=== PATIENT | male | born 1980 | race Caucasian/White ===

== ENCOUNTER 2022-12-16 17:51 | Inpatient (IN) | payer MEDICAID, SELFPAY ==
[2022-12-16 17:52] VITALS: BP 163/116; PULSE 103; RESP 16; TEMP 36.4; O2SAT 95; BMI 16.5
--- NOTE | 2022-12-16 18:26 | EDS_ITS ---
HPI History of Present Illness Chief Complaint: Substance Abuse Informant: patient Onset/Context/Timing Onset: Today Context: Gradual Onset Timing: Continuous Quality: Tremors Location: Generalized Worsened by: Nothing Relieved by: Nothing Associated Symptoms Associated Symptoms: Positive for diarrhea*; Negative for vomiting*, fever*, rash*, seizure, tremor, palpatations, change in mental status, suicidal ideation or homicidal ideation Narrative Narrative: Patient presents requesting detox from alcohol, cocaine, and marijuana. Patient states he drinks the equivalent of a sixpack of beer per day. Patient states hi s last drink was approximately 3 PM today (4 hours prior to arrival). Patient has been through detox in the past. Patient states he was at a different facility and it was 3 to 4 years ago. 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 Patient states he has been having some diarrhea and some blood in his stools. Patient admits to some tremors but denies any seizures. Patient denies any suicidal or homicidal ideations. [facility] Medical History (Updated 12/16/22 @ 21:[address] Rolo Roque DO) Chronic pancreatitis due to acute alcohol intoxication Myocardial infarction Home Medications NK 12/16/22 [History Last Taken Unknown] Allergy/AdvReac Type Severity Reaction Status Date / Time No Known Allergies Allergy Verified 12/16/22 17:54 Surgical History History of back surgery Social History (Updated 12/16/22 @ 19:[address] Rolo Roque DO) Smoking Status: Current every day smoker tobacco type: cigarettes alcohol intake: current alcohol intake frequency: 3 or more drinks per day Alcohol type: beer substance use type: marijuana and crack/cocaine ROS ROS ED Constitutional Constitutional ED: Denies chills or fever(s) Eyes Eyes: Denies blurry vision or change in vision ENT ENT ED: Denies rhinorrhea or sore throat Cardiovascular Cardiovascular: Denies chest pain or palpitations Respiratory/Chest Respiratory/Chest: Denies cough or dyspnea Gastrointestinal Gastrointestinal: Reports diarrhea; Denies nausea or vomiting Genitourinary Genitourinary ED: Denies dysuria or hematuria Musculoskeletal Musculoskeletal: Reports back pain; Denies neck pain Integumentary Denies abscess or rash Neurologic Neurologic: Denies headache(s) or weakness Allergic/Immunologic Allergic/Immunologic ED: Denies mouth swelling or urticaria EXAM Physical Exam Const Vital Signs: 12/16/22 17:52 12/16/22 19:44 Temperature 97.6 F L 98.0 F Temperature Source Temporal Temporal Pulse Rate 103 H 82 Respiratory Rate 16 18 Blood Pressure 163/116 H 127/90 H Blood Pressure Mean 131 102 Pulse Ox 95 98 Oxygen Delivery Method Room Air Room Air Positive well nourished and well developed General Appearance ED: well developed and NAD HEENT Reports moist mucous membranes Neck supple and no JVD Resp normal respiratory effort and clear to auscultation bilaterally Cardio regular rate and regular rhythm GI normal to inspection, nondistended, normoactive bowel sounds GI Narrative: Rectal exam showed good sphincter tone. There were external hemorrhoids noted. There is red blood noted on the rectal exam. Palpation: soft and tender LUQ; Negative for guarding Rectal Exam: heme positive stool Extremity normal to inspection General Extremety ED: Negative for edema or tenderness General Extremity: Negative for edema Neuro oriented x3, CN's II-XII intact bilaterally and no sensory deficits noted Sensorium / Orientation: alert Speech: speech normal Motor Exam: strength 5/5 throughout Psych mental status grossly normal Skin no rashes or lesions noted MDM MDM MDM Narrative Medical decision making narrative: Differential diagnosis includes alcohol withdrawal, alcohol dependence, substance abuse, pancreatitis, and coagulopathy. CBC will be obtained to assess for anemia and leukocytosis. Comprehensive metabolic profile will be obtained to assess for hepatic function, renal function, and electrolyte abnormality. PT was INR and PTT will be obtained to assess for coagulopathy. Serum alcohol level will be obtained to assess for alcohol intoxication. Urine drug screen will be obtained to assess for substance abuse. Lab Data Attestation: I reviewed the patient's lab results. Lab results narrative: CBC was reviewed. Hemoglobin and hematocrit are stable. There is no leukocytosis. Platelets are normal. PT with INR and PTT were reviewed and were within normal limits. Comprehensive metabolic profile was reviewed. Glucose was slightly elevated at 135 but the remainder is within normal limits. Serum alcohol level was reviewed and was elevated at 338. Urine tox screen was positive for cocaine and cannabinoids. Labs: Laboratory Results - last 24 hr 12/16/22 12/16/22 18:20 18:25 WBC 8.6 RBC 5.01 Hgb 14.9 Hct 45.9 MCV 91.6 MCH 29.7 MCHC 32.5 RDW Std Deviation 46.7 H RDW Coeff of Sean 13.8 Plt Count 339 MPV 9.3 Immature Gran % (Auto) 0.400 Neut % (Auto) 58.0 Lymph % (Auto) 30.4 [place] % (Auto) 7.6 Eos % (Auto) 2.5 Baso % (Auto) 1.1 H Absolute Neuts (auto) 5.0 Absolute Lymphs (auto) 2.60 Nucleated RBC % 0 PT 12.3 INR 0.9 APTT 25.3 Sodium 138 Potassium 3.6 Chloride 104 Carbon Dioxide 28.0 Anion Gap 6 BUN 7 Creatinine 0.59 L Estim Creat Clear Calc 135.31 Est GFR (MDRD) Af Amer 193 Est GFR (MDRD) Non-Af 159 BUN/Creatinine Ratio 11.9 Glucose 135 H Calcium 8.6 Total Bilirubin 0.20 AST 34 ALT 25 Alkaline Phosphatase 77 Total Protein 8.1 Albumin 4.0 Globulin 4.1 Albumin/Globulin Ratio 1.0 Urine Opiates Screen NEGATIVE Urine Methadone Screen NEGATIVE Ur Barbiturates Screen NEGATIVE Ur Phencyclidine Scrn NEGATIVE Ur Amphetamines Screen NEGATIVE MDMA (Ecstasy) Screen NEGATIVE U Benzodiazepines Scrn NEGATIVE Urine Cocaine Screen POSITIVE H U Cannabinoids Screen POSITIVE H Ur Drug Screen Comment Ethyl Alcohol 338.0 H* Management Discussion w/another healthcare provider: Hospitalist (Dr. Ch) Treatment and Re-Evaluation Narrative: Patient was given a dose of phenobarbital here. Patient was given a nicotine patch. Case will be discussed with the hospitalist for admission for detox. He will admit the patient to his service. Patient understood and was agreeable with the plan. All questions were answered. Discharge Plan Dx/Rx/DC Orders Clinical Impression: Substance abuse, Alcohol withdrawal, Desire for detoxification Disposition Disposition: Acute Care Hospital [facility]
[2022-12-16 19:29] LABS: Basophil# 0.09 X10^3/uL; Basophil% 1.1 % (0-1); Eosinophil# 0.21 X10^3/uL; Eosinophils% 2.5 % (0-5); Hematocrit 45.9 % (40-54); Hemoglobin 14.9 g/dL (13.0-16.5); Lymphocyte % 30.4 % (19-41); Mean Corp Hgb Conc 32.5 g/dL (32-36); Mean Corpuscular Hgb 29.7 pg (27.0-32.0); Mean Corpuscular Volume 91.6 fL (80-94); Mean Platelet Vol. 9.3 fl (6.2-12.0); Monocyte# 0.65 X10^3/uL; Monocyte% 7.6 % (0-10); NRBC Flagged by Analyzer 0 % (0-5); Neutrophil # 4.98 X10^3/uL (2.7-7.7); Platelet Count 339 K/mm3 (150-450); RBC Distribution Width CV 13.8 % (11.6-14.6); RBC Distribution Width SD 46.7 fl (35.1-43.9); Red Blood Count 5.01 M/mm3 (4.6-6.2); White Blood Count 8.6 K/mm3 (4.4-11.0)
[2022-12-16] MEDS: Phenobarbital 32.4 MG Tablet 64.8 MG PO (19:30)
[2022-12-16 19:40] LABS: International Normalized Ratio 0.9; Partial Thromboplast Time 25.3 Seconds (24.1-36.2); Prothrombin Time (Protime)PT. 12.3 SECONDS (11.7-14.9)
[2022-12-16 19:44] VITALS: BP 127/90; PULSE 82; RESP 18; TEMP 36.7; O2SAT 98
[2022-12-16 19:50] LABS: AST(SGOT) 34 U/L (15-37); Alanine Aminotransfer ALT/SGPT 25 U/L (16-61); Alkaline Phosphatase 77 U/L (45-117); Anion Gap 6 (5-15); BUN 7 mg/dL (7-18); BUN/Creat Ratio 11.9 RATIO (10-20); Calcium,Total 8.6 mg/dL (8.5-10.1); Chloride 104 mmol/L (98-107); Creatinine, Serum 0.59 mg/dL (0.70-1.30); EST Glomerular Filtration Rate 159 mL/min (>60); Est Glom Filt Rate - Afr Amer 193 mL/min (>60); Estimated Creatinine Clearance 135.31 ml/min; Globulin 4.1 g/dL (2.2-4.2); Glucose 135 mg/dL (74-106); Potassium 3.6 mmol/L (3.5-5.1); Protein, Total 8.1 g/dL (6.4-8.2); Sodium Level 138 mmol/L (136-145)
--- NOTE | 2022-12-16 19:53 | CM.ED ---
Addendum entered by Shima Davila 12/16/22 20:17: SW provided patient with list of PCPs in network with patient's insurance accepting new patient's within 25 miles from his home. Patient receptive towards list. SANDRITA updated treatment navigator. STEVEN Whipple Original Note: Social Work SW met with patient and introduced self and role as [facility] SW. Patient lying in hospital bed and agreeable to speak with SW. SW engaged patient in conversation regarding AOD use and desire to detox. Patient reports alcohol, marijuana and cocaine use and recalls detoxing at a different location several years ago. SW briefly reviewed [facility] rules including it being a voluntary program, typical length of stay is 3-5 days, personal belongings are locked up including cell phone and no guests are permitted. SW also explained the patient will meet with the detox coordinator to discuss discharge/aftercare plan. Patient voiced understanding and reports feeling anxious about the process. SW provided emotional support. updated. Plan: [facility] STEVEN Whipple
[2022-12-16 19:58] LABS: Amphetamine Urine VISTA NEGATIVE (<1000 ng/mL); Barbiturate Urine VISTA NEGATIVE (< 200 ng/mL); Benzodiazepine Urine VISTA NEGATIVE (< 200 ng/mL); Cocaine Urine VISTA POSITIVE (< 300 ng/mL); Ecstacy Urine VISTA NEGATIVE (< 500 ng/mL); Methadone Urine VISTA NEGATIVE (< 300 ng/mL); PCP Urine VISTA NEGATIVE (< 25 ng/mL); THC Urine VISTA POSITIVE (< 50 ng/mL); Vista UDS pH Range 5
--- NOTE | 2022-12-16 21:44 | PCM.HP.STD ---
HPI - General HPI Narrative JEMIMA VALENCIA, is a 42 M who presents [facility] Medical History Chronic pancreatitis due to acute alcohol intoxication Myocardial infarction Home Medications NK 12/16/22 [History Last Taken Unknown] Allergy/AdvReac Type Severity Reaction Status Date / Time No Known Allergies Allergy Verified 12/16/22 17:54 Surgical History History of back surgery Social History Smoking Status: Current every day smoker tobacco type: cigarettes alcohol intake: current alcohol intake frequency: 3 or more drinks per day Alcohol type: beer substance use type: marijuana and crack/cocaine Vital Signs Vital Signs Vital Signs: 12/16/22 17:52 12/16/22 19:44 Temperature 97.6 F L 98.0 F Temperature Source Temporal Temporal Pulse Rate 103 H 82 Respiratory Rate 16 18 Blood Pressure 163/116 H 127/90 H Blood Pressure Mean 131 102 Pulse Ox 95 98 Oxygen Delivery Method Room Air Room Air Weight Weight: 59.874 kg Body Mass Index (BMI) 16.5 Results Lab / Micro Data 12/16/22 18:20 12/16/22 18:20 Labs: Laboratory Results - last 24 hr 12/16/22 18:20: WBC 8.6, RBC 5.01, Hgb 14.9, Hct 45.9, MCV 91.6, MCH 29.7, MCHC 32.5, RDW Std Deviation 46.7 H, RDW Coeff of Sean 13.8, Plt Count 339, MPV 9.3, Immature Gran % (Auto) 0.400, Neut % (Auto) 58.0, Lymph % (Auto) 30.4, [place] % (Auto) 7.6, Eos % (Auto) 2.5, Baso % (Auto) 1.1 H, Absolute Neuts (auto) 5.0, Absolute Lymphs (auto) 2.60, Nucleated RBC % 0, PT 12.3, INR 0.9, APTT 25.3, Sodium 138, Potassium 3.6, Chloride 104, Carbon Dioxide 28.0, Anion Gap 6, BUN 7, Creatinine 0.59 L, Estim Creat Clear Calc 135.31, Est GFR (MDRD) Af Amer 193, Est GFR (MDRD) Non-Af 159, BUN/Creatinine Ratio 11.9, Glucose 135 H, Calcium 8.6, Total Bilirubin 0.20, AST 34, ALT 25, Alkaline Phosphatase 77, Total Protein 8.1, Albumin 4.0, Globulin 4.1, Albumin/Globulin Ratio 1.0, Ethyl Alcohol 338.0 H* 12/16/22 18:25: Urine Opiates Screen NEGATIVE, Urine Methadone Screen NEGATIVE, Ur Barbiturates Screen NEGATIVE, Ur Phencyclidine Scrn NEGATIVE, Ur Amphetamines Screen NEGATIVE, MDMA (Ecstasy) Screen NEGATIVE, U Benzodiazepines Scrn NEGATIVE, Urine Cocaine Screen POSITIVE H, U Cannabinoids Screen POSITIVE H, Ur Drug Screen Comment
[2022-12-16 21:46] VITALS: RESP 18
--- NOTE | 2022-12-16 21:56 | HP.PCM.HOS_ITS ---
HPI - General General Date of Admission: 12/16/22 Date of Service: 12/16/22 Chief Complaint: Desire for alcohol detoxification HPI Narrative JEMIMA VALENCIA, is a 42 M with a significant history of chronic pancreatitis and with pancreatic cyst; alcoholism polysubstance abuse; and tobacco abuse who presents to the emergency department for help with alcohol detoxification. Reportedly patient has been drinking off and on for about 8 years. He has gone through one major rehabilitation program and other minor rehabilitation program(s). He drinks about 3 tall cans of beer a day. The last time he drank was just before he came to the emergency department. Because at the emergency department he was withdrawing; with shaking symptoms he was given phenobarbital. Of note aside alcoholism patient also began using crack cocaine about 2 months ago and that has been on and off. He smokes the crack cocaine. Further, he smokes marijuana. Also patient reports on and off rectal bleeding. ED doc report that on physical examination patient had bloody bowel movements and there was some hemorrhoids. [facility] Medical History Alcohol abuse Anxiety Chronic pain Chronic pancreatitis due to acute alcohol intoxication Depression Hypertension Myocardial infarction Smoker Home Medications NK 12/16/22 [History Last Taken Unknown] Allergy/AdvReac Type Severity Reaction Status Date / Time No Known Allergies Allergy Verified 12/16/22 17:54 Family History Other Heart disease Surgical History History of back surgery History of cholecystectomy Social History Smoking Status: Current every day smoker tobacco type: cigarettes alcohol intake: current alcohol intake frequency: 3 or more drinks per day Alcohol type: beer substance use type: marijuana and crack/cocaine ROS ROS Narrative Pertinent positives and pertinent negatives as noted in HPI. All other systems were reviewed and are negative Vital Signs Vital Signs Vital Signs: 12/16/22 17:52 12/16/22 19:44 12/16/22 21:46 Temperature 97.6 F L 98.0 F Temperature Source Temporal Temporal Pulse Rate 103 H 82 Respiratory Rate 16 18 18 Blood Pressure 163/116 H 127/90 H Blood Pressure Mean 131 102 Pulse Ox 95 98 Oxygen Delivery Method Room Air Room Air Weight Weight: 59.874 kg Body Mass Index (BMI) 16.5 Physical Exam Narrative Physical exam: General: Well-nourished, well-developed. Head: Normocephalic, atraumatic, no tenderness Eyes: Vision is grossly intact. EOMI EN: Edentulous, no trauma, moist mucous membranes, no rhinorrhea Neck: Nontender, No thyromegaly. CVS: Regular rate and rhythm. S1-S2 present. No murmur, gallop or rub. Respiratory : clear to auscultation bilaterally, chest wall nontender Abdomen: Soft, nontender, nondistended, normal bowel sounds, no masses : Deferred Back: Nontender, no CVA tenderness Extremities: Nontender full range of motion, no trauma. Cachexia Skin: Normal color, no trauma, abrasions Neuro: Alert, oriented, cranial nerves II through XII grossly intact. Psychiatry: Normal mood. Normal affect. Not depressed. Not anxious. Results Lab / Micro Data 12/16/22 18:20 12/16/22 18:20 Labs: Laboratory Results - last 24 hr 12/16/22 18:20: WBC 8.6, RBC 5.01, Hgb 14.9, Hct 45.9, MCV 91.6, MCH 29.7, MCHC 32.5, RDW Std Deviation 46.7 H, RDW Coeff of Sean 13.8, Plt Count 339, MPV 9.3, Immature Gran % (Auto) 0.400, Neut % (Auto) 58.0, Lymph % (Auto) 30.4, [place] % (Auto) 7.6, Eos % (Auto) 2.5, Baso % (Auto) 1.1 H, Absolute Neuts (auto) 5.0, Absolute Lymphs (auto) 2.60, Nucleated RBC % 0, PT 12.3, INR 0.9, APTT 25.3, Sodium 138, Potassium 3.6, Chloride 104, Carbon Dioxide 28.0, Anion Gap 6, BUN 7, Creatinine 0.59 L, Estim Creat Clear Calc 135.31, Est GFR (MDRD) Af Amer 193, Est GFR (MDRD) Non-Af 159, BUN/Creatinine Ratio 11.9, Glucose 135 H, Calcium 8.6, Total Bilirubin 0.20, AST 34, ALT 25, Alkaline Phosphatase 77, Total Protein 8.1, Albumin 4.0, Globulin 4.1, Albumin/Globulin Ratio 1.0, Ethyl Alcohol 338.0 H* 12/16/22 18:25: Urine Opiates Screen NEGATIVE, Urine Methadone Screen NEGATIVE, Ur Barbiturates Screen NEGATIVE, Ur Phencyclidine Scrn NEGATIVE, Ur Amphetamines Screen NEGATIVE, MDMA (Ecstasy) Screen NEGATIVE, U Benzodiazepines Scrn NEGATIVE, Urine Cocaine Screen POSITIVE H, U Cannabinoids Screen POSITIVE H, Ur Drug Screen Comment Assessment & Plan Assessment/Plan (1) Desire for detoxification: (2) BRBPR (bright red blood per rectum): (3) Tobacco abuse: PLAN: Plan Alcohol dependence and desire for detoxification Patient be started on phenobarbital and other adjunctive medications: Gabapentin as needed; dicyclomine as needed; Vistaril as needed; Imodium as needed; trazodone as needed; Zofran as needed; scheduled thiamine; and schedule folic acid. Monitor CIWA score Tobacco abuse Counseled Nicotine patch prescribed. Cocaine abuse Avoid beta-blockers. Counseled. Marijuana Abuse Counseled Bright red blood per rectum Hemoglobin is stable at 14.9. ED doc reports external hemorrhoids and bloody stools. Will trend. If patient continues to bleed or if hemoglobin drops significantly consider gastroenterology consult. Protein calorie malnutrition Cachexia BMI of 15.7 kg per metered squared. Ensure Enlive compact ordered Nutritional consult DVT prophylaxis Low risk Encourage to ambulate. Time spent in the patient's overall evaluation,decision-making process, review of diagnostic data, adjustment of management, discussion with other providers, nursing nursing and ancillary staff involved in patient's care documentation, 60 minutes. Charges/Coding Visit Charges Inpatient E&M: 51098 Init Hosp L3
[2022-12-16 22:12] LABS: Lipase 953 U/L (13-75)
[2022-12-16 22:39] VITALS: BP 133/101; PULSE 83; RESP 18; TEMP 36.9; O2SAT 96; BMI 15.7
[2022-12-16] MEDS: Phenobarbital 32.4 MG Tablet PO (23:14)
[2022-12-16] MEDS: Gabapentin 300 MG Capsule PO (23:14)
[2022-12-16] MEDS: 0.9% Saline Lock 10 ML Syringe IV (23:29)
[2022-12-17 00:07] LABS: Hemoglobin 13.1 g/dL (13.0-16.5)
[2022-12-17] MEDS: traZODone 100 MG Tablet PO ×2 (00:21→20:57)
[2022-12-17] MEDS: Phenobarbital 32.4 MG Tablet PO ×6 (04:14→23:19)
[2022-12-17 04:15] VITALS: BP 133/79; PULSE 87; RESP 18; TEMP 36.5; O2SAT 98
[2022-12-17] MEDS: hydrOXYzine PAM 25 MG Capsule 50 MG PO ×2 (04:22→18:41)
[2022-12-17] MEDS: Dicyclomine 10 MG Capsule 20 MG PO (04:22)
[2022-12-17 06:37] LABS: Hematocrit 39.3 % (40-54); Hemoglobin 12.5 g/dL (13.0-16.5)
[2022-12-17 06:45] VITALS: BP 136/100; PULSE 74; RESP 18; TEMP 36.6; O2SAT 96
--- NOTE | 2022-12-17 08:06 | PCM.PN.HOSP ---
Reason for Visit Reason for Visit: Diagnoses Hemorrhage of anus and rectum (12/16/22) Tobacco use (12/16/22) Subjective Subjective Had some abdominal pain, but was able to eat a good breakfast without difficulty. Objective Data Objective Data Vital Signs: Vital Signs Temp Pulse Resp BP Pulse Ox O2 Del Method 36.6 C 74 18 136/100 H 96 Room Air 12/17/22 06:45 12/17/22 06:45 12/17/22 06:45 12/17/22 06:45 12/17/22 06:45 12/17/22 06:45 Oxygen Delivery Method Room Air Weight: 57.1 kg Body Mass Index (BMI) 15.7 Intake & Output: Intake and Output for Last 24 Hours 12/15/22 12/16/22 12/17/22 23:59 23:59 23:59 Intake Total 400 / 400 400 / 400 Balance 400 / 400 400 / 400 Lab / Micro Data 12/17/22 06:05 12/16/22 18:20 Labs: Laboratory Results - last 24 hr 12/16/22 18:20: WBC 8.6, RBC 5.01, Hgb 14.9, Hct 45.9, MCV 91.6, MCH 29.7, MCHC 32.5, RDW Std Deviation 46.7 H, RDW Coeff of Sean 13.8, Plt Count 339, MPV 9.3, Immature Gran % (Auto) 0.400, Neut % (Auto) 58.0, Lymph % (Auto) 30.4, [place] % (Auto) 7.6, Eos % (Auto) 2.5, Baso % (Auto) 1.1 H, Absolute Neuts (auto) 5.0, Absolute Lymphs (auto) 2.60, Nucleated RBC % 0, PT 12.3, INR 0.9, APTT 25.3, Sodium 138, Potassium 3.6, Chloride 104, Carbon Dioxide 28.0, Anion Gap 6, BUN 7, Creatinine 0.59 L, Estim Creat Clear Calc 135.31, Est GFR (MDRD) Af Amer 193, Est GFR (MDRD) Non-Af 159, BUN/Creatinine Ratio 11.9, Glucose 135 H, Calcium 8.6, Total Bilirubin 0.20, AST 34, ALT 25, Alkaline Phosphatase 77, Total Protein 8.1, Albumin 4.0, Globulin 4.1, Albumin/Globulin Ratio 1.0, Lipase 953 H, Ethyl Alcohol 338.0 H* 12/16/22 18:25: Urine Opiates Screen NEGATIVE, Urine Methadone Screen NEGATIVE, Ur Barbiturates Screen NEGATIVE, Ur Phencyclidine Scrn NEGATIVE, Ur Amphetamines Screen NEGATIVE, MDMA (Ecstasy) Screen NEGATIVE, U Benzodiazepines Scrn NEGATIVE, Urine Cocaine Screen POSITIVE H, U Cannabinoids Screen POSITIVE H, Ur Drug Screen Comment 12/16/22 23:35: Hgb 13.1, Hct 40.0 12/17/22 06:05: Hgb 12.5 L, Hct 39.3 L Micro: Microbiology 12/16/22 21:28 Stool Stool Occult Blood (DEVON) - Final Occult Blood Positive Physical Exam Const alert and no apparent distress HEENT head/scalp atraumatic and moist oral mucous membranes Resp normal respiratory effort, no retractions, no use of accessory muscles and clear to auscultation bilaterally Cardio regular rate, regular rhythm, S1 normal heart sound and S2 normal heart sound GI normal to inspection, nondistended, normoactive bowel sounds, soft to palpation, non-tender and non-distended Extremity normal to inspection Assessment & Plan Assessment/Plan (1) Desire for detoxification: PLAN: Alcohol dependence and desire for detoxification Patient be started on phenobarbital and other adjunctive medications: Gabapentin as needed; dicyclomine as needed; Vistaril as needed; Imodium as needed; trazodone as needed; Zofran as needed; scheduled thiamine; and schedule folic acid. Monitor CIWA score Pt to decide upon residential or other program after discharge. (2) BRBPR (bright red blood per rectum): PLAN: Bright red blood per rectum Hemoglobin is stable at 14.9. ED doc reports external hemorrhoids and bloody stools. Will trend. If patient continues to bleed or if hemoglobin drops significantly consider gastroenterology consult. (3) Protein calorie malnutrition: PLAN: Cachexia BMI of 15.7 kg per metered squared. Ensure Enlive compact ordered Nutritional consult PLAN: Plan Chronic conditions: Tobacco abuse. Counseled. Nicotine patch prescribed. Cocaine abuse. Avoid beta-blockers. Counseled. Marijuana Abuse. Counseled chronic alcohol pancreatitis: stable. DVT prophylaxis. Low risk. Encourage to ambulate. Charges/Coding Visit Charges Inpatient E&M: 97216 Subs Hosp L2
[2022-12-17 09:18] VITALS: BP 123/94; PULSE 83; RESP 16; TEMP 36.8; O2SAT 99
[2022-12-17] MEDS: Folic Acid 1 MG Tablet PO (09:53)
[2022-12-17] MEDS: Thiamine Hydrochloride 100 MG Tablet PO (09:54)
--- NOTE | 2022-12-17 11:32 | ADDICTION ---
This public relations writer met with client who was admitted 12/16/22 via ER for ETOH detox. Client is a 42 year old male who resides with his mom in [facility]. He is unemployed with two adult daughters. He reports he started drinking ETOH when he was 11 years old, his drinking progressed in his early 20's and has been drinking since. He reports appro 4-5 times completing inpatient ETOH detox, his last detox was at [facility] in [place] 3 years ago. He was able to maintain sobriety for 1 week after completing treatment. He reports a h/o 12-step involvement and has a sponsor, however has not been in contact with sober support for 5 months. He currently is drinking 4-5 tall boys daily and started using crack a few months ago. He struggles with affording crack but admits he uses every chance he gets in addition to marijuana. He is not sure if he wants to stop marijuana use. Client initially wanted to direct admit to residential treatment upon completing detox. However, when meeting with him this morning he indicates he would like to talk to his family (mom) about treatment. This public relations writer will follow-up with client. He was given information on AoD treatment.
[2022-12-17 12:08] LABS: Hematocrit 38.1 % (40-54); Hemoglobin 12.4 g/dL (13.0-16.5)
--- NOTE | 2022-12-17 15:15 | CHAPLAIN ---
Type of Pastoral Visit _x__ Initial Visit ___ Follow-up Visit ___ On-call Visit ___ General Patient Visit ___ Spiritual Assessment ___ Family Conference ___ Bereavement ___ Rapid Response ___ Code Blue ___ Other (describe below) Pastoral Care Referral From _x__ Patient ___ Family ___ Nurse ___ Physician ___ Editing Clerk ___ Quality Assurance Auditor ___ Other (describe below) Sacrament/Intervention _x__ Active listening ___ Anointing ___ Gnosticist ___ Bereavement ___ Communion _x__ Zena exploration ___ _x__ Life review _x__ Prayer ___ Reconciliation ___ Sacrament of Sick _x__ Supportive presence ___ Wedding ___ Other (describe below) Pastoral Comments this was a long and thorough visit with patient who described himself in first words as alcoholic and who has experienced several life traumas that he has never gotten to heal from in 20+ years; pt states he has been seeing a counselor for three years with some minimal improvement; recent drug use has 'scared me' into seeking help; pt admits to great weight loss and having no life but alcohol and sleeping; pt had one previous experience in rehab that was really good but then I didn't stay sober after awhile away from it; pt does not work due to poor health caused by my drinking; pt has two children but has not seen them in years; pt lives in mother's basement and she is supportive; pt admits very little human contact; pt has had spiritual thoughts and interest; talked about true identity and forgiveness; patient welcomed prayer and presence of this tack coverer with expressed thanks for the visit; pt stated that I have much to think about now
[2022-12-17 18:00] VITALS: BP 129/91; PULSE 68; RESP 16; TEMP 36.6; O2SAT 100
[2022-12-17 20:54] VITALS: BP 119/85; PULSE 76; RESP 16; TEMP 37; O2SAT 100
[2022-12-17] MEDS: Gabapentin 300 MG Capsule PO (20:57)
[2022-12-18] MEDS: Phenobarbital 32.4 MG Tablet PO ×6 (02:58→22:17)
[2022-12-18 02:59] VITALS: BP 108/81; PULSE 60; RESP 16; TEMP 36.6; O2SAT 98
--- NOTE | 2022-12-18 08:37 | PN.HOSP_ITS ---
Subjective Subjective Complains of pain in lateral right arm, occasional paresthesia of left hand involving 1st-5th fingers, worse in the morning. Objective Data Objective Data Vital Signs: Vital Signs Temp Pulse Resp BP Pulse Ox O2 Del Method 36.6 C 60 16 108/81 H 98 Room Air 12/18/22 02:59 12/18/22 02:59 12/18/22 02:59 12/18/22 02:59 12/18/22 02:59 12/18/22 02:59 Oxygen Delivery Method Room Air Weight: 57.1 kg Body Mass Index (BMI) 15.7 Intake & Output: Intake and Output for Last 24 Hours 12/16/22 12/17/22 12/18/22 23:59 23:59 23:59 Intake Total 400 / 400 400 / 400 Balance 400 / 400 400 / 400 Medical Nutrition Assessment Dietitian: Malnutrition Criteria Met Start: 12/17/22 14:25 Freq: Status: Active Protocol: Document 12/17/22 14:37 AG (Rec: 12/17/22 14:37 AG [id number]) Nutrition Malnutrition Evidence of Malnutrition Exists Yes Malnutrition (severe): Chronic Evidenced By Suboptimal Energy Intake ( Severe),Weight Loss (Severe), Physical Changes (Severe) Clinical Problem Chronic Disease or Condition Related Malnutrition Etiology severe, chronic malnutrition related to inadequate protein- calorie intake w/ chronic alcohol abuse Signs/Symptoms as evidenced by estimated PO intake meeting <50% of estimated energy needs > 3 months, unintentional wt loss of 10% x 3 months; severe muscle wasting/fat loss evident per physical exam in orbital, clavicle, and acromion areas; BMI 15.7 Status Active Problem Recommendation Dietitian Recommendations/Changes continue regular diet; will increase supplement to Ensure Plus High Protein, 8oz TID. Lab / Micro Data 12/17/22 11:58 12/16/22 18:20 Labs: Laboratory Results - last 24 hr 12/17/22 11:58: Hgb 12.4 L, Hct 38.1 L Micro: Microbiology 12/16/22 21:28 Stool Stool Occult Blood (DEVON) - Final Occult Blood Positive Physical Exam Const alert and no apparent distress Extremity Extremity Narrative: TTP over left lateral epicondyle. Assessment & Plan Assessment/Plan (1) Desire for detoxification: PLAN: Alcohol dependence and desire for detoxification Patient be started on phenobarbital and other adjunctive medications: Gabapentin as needed; dicyclomine as needed; Vistaril as needed; Imodium as needed; trazodone as needed; Zofran as needed; scheduled thiamine; and schedule folic acid. Monitor CIWA score Pt to decide upon residential or other program after discharge. (2) BRBPR (bright red blood per rectum): PLAN: Bright red blood per rectum Hemoglobin is stable at 14.9. ED doc reports external hemorrhoids and bloody stools. Will trend. If patient continues to bleed or if hemoglobin drops significantly consider gastroenterology consult. (3) Protein calorie malnutrition: PLAN: Cachexia BMI of 15.7 kg per metered squared. Ensure Enlive compact ordered Nutritional consult (4) Lateral epicondylitis: QUALIFIERS: Laterality: left Qualified Code(s): M77.12 - Lateral epicondylitis, left elbow PLAN: Left Recommend NSAIDs and ice. (5) Ulnar neuropathy: PLAN: Advised placing his left arm b/w his legs when he sleeps If that fails, then could wrap a towel around his arm to prevent him bending his arm when he sleeps. PLAN: Plan Chronic conditions: * Tobacco abuse. Counseled. Nicotine patch prescribed. * Cocaine abuse. Avoid beta-blockers. Counseled. * Marijuana Abuse. Counseled * chronic alcohol pancreatitis: stable. DVT prophylaxis. Low risk. Encourage to ambulate. Charges/Coding Visit Charges Inpatient E&M: 04979 Subs Hosp L2
[2022-12-18] MEDS: Folic Acid 1 MG Tablet PO (08:41)
[2022-12-18] MEDS: Thiamine Hydrochloride 100 MG Tablet PO (08:41)
[2022-12-18 08:53] VITALS: BP 109/90; PULSE 76; RESP 16; TEMP 36.6; O2SAT 100
--- NOTE | 2022-12-18 11:48 | CASEMGMT ---
Social Work SW met with pt to discuss advance directives.? Pt states that he has completed a HCPOA naming his daughter, but she has declined to do this and he would like to make a new directives. SW assisted pt in completing a living will and HCPOA naming his mother Jessica Marcial. Copies placed on chart and original given to pt. ROSI Amaral
[2022-12-18 14:11] VITALS: BP 95/68; PULSE 84; RESP 16; TEMP 36.7; O2SAT 97
[2022-12-18] MEDS: hydrOXYzine PAM 25 MG Capsule 50 MG PO ×2 (14:22→22:16)
[2022-12-18] MEDS: Ibuprofen 600 MG Tablet PO (14:23)
--- NOTE | 2022-12-18 14:49 | CHAPLAIN ---
Type of Pastoral Visit ___ Initial Visit _x__ Follow-up Visit ___ On-call Visit ___ General Patient Visit ___ Spiritual Assessment ___ Family Conference ___ Bereavement ___ Rapid Response ___ Code Blue ___ Other (describe below) Pastoral Care Referral From _x__ Patient ___ Family ___ Nurse ___ Physician ___ Service Unit Operator [employer] ___ Mandolin Repairer ___ Other (describe below) Sacrament/Intervention _x__ Active listening ___ Anointing ___ Buddhism ___ Bereavement ___ Communion ___ Zena exploration ___ ___ Life review _x__ Prayer ___ Reconciliation ___ Sacrament of Sick _x__ Supportive presence ___ Wedding ___ Other (describe below) Pastoral Comments patient was just medicated after he acknowledged to RN and this dry dip worker that he is having nightmares and disturbing dreams; pt is offered encouragement to get help for follow up and affirmation of his desire to complete this program; prayer is welcomed; pt expresses thanks for the support
--- NOTE | 2022-12-18 15:02 | ADDICTION ---
TW f/u with pt after he discussed the possibility of residential treatment. Pt stated he is not interested in residential at this time. He has supports at home he wants to f/u with.
[2022-12-18 19:29] VITALS: BP 111/78; PULSE 83; RESP 18; TEMP 36.6; O2SAT 99
[2022-12-18] MEDS: Dicyclomine 10 MG Capsule 20 MG PO (19:41)
[2022-12-18] MEDS: traZODone 100 MG Tablet PO (19:42)
[2022-12-18] MEDS: Gabapentin 300 MG Capsule PO (19:42)
[2022-12-19 02:48] VITALS: BP 97/69; PULSE 56; RESP 16; TEMP 36.6; O2SAT 98
[2022-12-19] MEDS: Phenobarbital 32.4 MG Tablet PO ×4 (02:51→18:01)
[2022-12-19] MEDS: hydrOXYzine PAM 25 MG Capsule 50 MG PO ×4 (02:55→21:03)
--- NOTE | 2022-12-19 07:39 | PCM.PN.HOSP ---
Reason for Visit Reason for Visit: Diagnoses Unspecified protein-calorie malnutrition (12/16/22) Lesion of ulnar nerve, unspecified upper limb (12/16/22) Hemorrhage of anus and rectum (12/16/22) Lateral epicondylitis, left elbow (12/16/22) Tobacco use (12/16/22) Subjective Subjective Still with some tremulousness. Still with right arm pain. Objective Data Objective Data Vital Signs: Vital Signs Temp Pulse Resp BP Pulse Ox O2 Del Method 36.6 C 56 L 16 97/69 98 Room Air 12/19/22 02:48 12/19/22 02:48 12/19/22 02:48 12/19/22 02:48 12/19/22 02:48 12/19/22 02:48 Oxygen Delivery Method Room Air Weight: 57.1 kg Body Mass Index (BMI) 15.7 Intake & Output: Intake and Output for Last 24 Hours 12/17/22 12/18/22 12/19/22 23:59 23:59 23:59 Intake Total 400 / 400 1300 / 1300 Balance 400 / 400 1300 / 1300 Medical Nutrition Assessment Dietitian: Malnutrition Criteria Met Start: 12/17/22 14:25 Freq: Status: Active Protocol: Document 12/17/22 14:37 AG (Rec: 12/17/22 14:37 AG [id number]) Nutrition Malnutrition Evidence of Malnutrition Exists Yes Malnutrition (severe): Chronic Evidenced By Suboptimal Energy Intake ( Severe),Weight Loss (Severe), Physical Changes (Severe) Clinical Problem Chronic Disease or Condition Related Malnutrition Etiology severe, chronic malnutrition related to inadequate protein- calorie intake w/ chronic alcohol abuse Signs/Symptoms as evidenced by estimated PO intake meeting <50% of estimated energy needs > 3 months, unintentional wt loss of 10% x 3 months; severe muscle wasting/fat loss evident per physical exam in orbital, clavicle, and acromion areas; BMI 15.7 Status Active Problem Recommendation Dietitian Recommendations/Changes continue regular diet; will increase supplement to Ensure Plus High Protein, 8oz TID. Lab / Micro Data 12/17/22 11:58 12/16/22 18:20 Micro: Microbiology 12/16/22 21:28 Stool Stool Occult Blood (DEVON) - Final Occult Blood Positive Physical Exam Const alert and no apparent distress Extremity normal to inspection Neuro Neuro Narrative: Slight tremulousness extremities. Psych affect normal Assessment & Plan Assessment/Plan (1) Desire for detoxification: PLAN: Alcohol dependence and desire for detoxification Patient be started on phenobarbital and other adjunctive medications: Gabapentin as needed; dicyclomine as needed; Vistaril as needed; Imodium as needed; trazodone as needed; Zofran as needed; scheduled thiamine; and schedule folic acid. Monitor CIWA score Still symptomatic. Continue with phenobarb taper hopefully patient will be ready for discharge a day or 2. Patient met with addiction medicine and told them that he is not interested in residential program go home. (2) BRBPR (bright red blood per rectum): PLAN: Bright red blood per rectum Hemoglobin is stable at 14.9. ED doc reports external hemorrhoids and bloody stools. Will trend. If patient continues to bleed or if hemoglobin drops significantly consider gastroenterology consult. (3) Protein calorie malnutrition: PLAN: Cachexia BMI of 15.7 kg per metered squared. Ensure Enlive compact ordered Nutritional consult (4) Lateral epicondylitis: QUALIFIERS: Laterality: left Qualified Code(s): M77.12 - Lateral epicondylitis, left elbow PLAN: Left Recommend NSAIDs and ice. (5) Ulnar neuropathy: PLAN: Advised placing his left arm b/w his legs when he sleeps If that fails, then could wrap a towel around his arm to prevent him bending his arm when he sleeps. PLAN: Plan Chronic conditions: Tobacco abuse. Counseled. Nicotine patch prescribed. Cocaine abuse. Avoid beta-blockers. Counseled. Marijuana Abuse. Counseled chronic alcohol pancreatitis: stable. DVT prophylaxis. Low risk. Encourage to ambulate. Charges/Coding Visit Charges Inpatient E&M: 51521 [facility] Hosp L1
[2022-12-19] MEDS: Folic Acid 1 MG Tablet PO (09:01)
[2022-12-19] MEDS: Thiamine Hydrochloride 100 MG Tablet PO (09:01)
[2022-12-19] MEDS: Gabapentin 300 MG Capsule PO ×2 (09:07→21:03)
[2022-12-19 09:16] VITALS: BP 104/89; PULSE 60; RESP 18; TEMP 36.7; O2SAT 95
[2022-12-19 09:18] VITALS: BP 104/89; PULSE 60; RESP 18; TEMP 36.7; O2SAT 95
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
[2022-12-19 14:00] VITALS: BP 105/91; PULSE 66; RESP 18; TEMP 36.7; O2SAT 95
[2022-12-19 16:00] VITALS: BP 106/82; PULSE 72; RESP 18; TEMP 36.9; O2SAT 98
[2022-12-19 21:00] VITALS: BP 110/53; BP 110/83; PULSE 80; RESP 16; TEMP 36.4; O2SAT 98
[2022-12-19] MEDS: traZODone 100 MG Tablet PO (21:03)
--- NOTE | 2022-12-19 21:26 | NURSING ---
pt asked this nurse to call his mother. Mother was asked to leave her phone on so when he is d/c he can call her for a ride. Mother was called
[2022-12-20] MEDS: Phenobarbital 32.4 MG Tablet PO ×3 (01:36→12:58)
[2022-12-20 02:19] VITALS: BP 103/67; PULSE 74; RESP 17; TEMP 36.6; O2SAT 98
--- NOTE | 2022-12-20 07:31 | PN.HOSP_ITS ---
Reason for Visit Reason for Visit: Diagnoses Unspecified protein-calorie malnutrition (12/16/22) Lesion of ulnar nerve, unspecified upper limb (12/16/22) Hemorrhage of anus and rectum (12/16/22) Lateral epicondylitis, left elbow (12/16/22) Tobacco use (12/16/22) Subjective Subjective Feeling well. No events. Tolerating PO. Objective Data Objective Data Vital Signs: Vital Signs Temp Pulse Resp BP Pulse Ox O2 Del Method 36.6 C 74 17 103/67 98 Room Air 12/20/22 02:19 12/20/22 02:19 12/20/22 02:19 12/20/22 02:19 12/20/22 02:19 12/20/22 02:19 Oxygen Delivery Method Room Air Weight: 57.1 kg Body Mass Index (BMI) 15.7 Intake & Output: Intake and Output for Last 24 Hours 12/18/22 12/19/22 12/20/22 23:59 23:59 23:59 Intake Total 2780 / 2780 640 / 640 Balance 2780 / 2780 640 / 640 Medical Nutrition Assessment Dietitian: Malnutrition Criteria Met Start: 12/17/22 14:25 Freq: Status: Active Protocol: Document 12/17/22 14:37 AG (Rec: 12/17/22 14:37 AG [id number]) Nutrition Malnutrition Evidence of Malnutrition Exists Yes Malnutrition (severe): Chronic Evidenced By Suboptimal Energy Intake ( Severe),Weight Loss (Severe), Physical Changes (Severe) Clinical Problem Chronic Disease or Condition Related Malnutrition Etiology severe, chronic malnutrition related to inadequate protein- calorie intake w/ chronic alcohol abuse Signs/Symptoms as evidenced by estimated PO intake meeting <50% of estimated energy needs > 3 months, unintentional wt loss of 10% x 3 months; severe muscle wasting/fat loss evident per physical exam in orbital, clavicle, and acromion areas; BMI 15.7 Status Active Problem Recommendation Dietitian Recommendations/Changes continue regular diet; will increase supplement to Ensure Plus High Protein, 8oz TID. Lab / Micro Data 12/17/22 11:58 12/16/22 18:20 Micro: Microbiology 12/16/22 21:28 Stool Stool Occult Blood (DEVON) - Final Occult Blood Positive Physical Exam Const alert and no apparent distress HEENT head/scalp atraumatic Neuro Sensorium / Orientation: awake and alert Psych affect normal Assessment & Plan Assessment/Plan (1) Desire for detoxification: PLAN: Alcohol dependence and desire for detoxification Patient be started on phenobarbital and other adjunctive medications: Gabapentin as needed; dicyclomine as needed; Vistaril as needed; Imodium as needed; trazodone as needed; Zofran as needed; scheduled thiamine; and schedule folic acid. Monitor CIWA score Still symptomatic. Continue with phenobarb taper hopefully patient will be ready for discharge a day or 2. Patient met with addiction medicine and told them that he is not interested in residential program go home. He says he will follow up with AA. (2) BRBPR (bright red blood per rectum): PLAN: Bright red blood per rectum Hemoglobin is stable at 14.9. ED doc reports external hemorrhoids and bloody stools. Will trend. If patient continues to bleed or if hemoglobin drops significantly consider gastroenterology consult. (3) Protein calorie malnutrition: QUALIFIERS: Protein-calorie malnutrition severity: severe Qualified Code(s): E43 - Unspecified severe protein-calorie malnutrition PLAN: Cachexia BMI of 15.7 kg per metered squared. Ensure Enlive compact ordered here. Liberalize diet upon discharge Nutritional consult (4) Lateral epicondylitis: QUALIFIERS: Laterality: left Qualified Code(s): M77.12 - Lateral epicondylitis, left elbow PLAN: Left Recommend NSAIDs and ice. (5) Ulnar neuropathy: QUALIFIERS: Laterality: left Qualified Code(s): G56.22 - Lesion of ulnar nerve, left upper limb PLAN: Advised placing his left arm b/w his legs when he sleeps If that fails, then could wrap a towel around his arm to prevent him bending his arm when he sleeps. PLAN: Plan Chronic conditions: * Tobacco abuse. Counseled. Nicotine patch prescribed. * Cocaine abuse. Avoid beta-blockers. Counseled. * Marijuana Abuse. Counseled * chronic alcohol pancreatitis: stable. DVT prophylaxis. Low risk. Encourage to ambulate.
[2022-12-20 08:00] VITALS: BP 104/74; PULSE 84; RESP 18; TEMP 36.6; O2SAT 96
[2022-12-20] MEDS: Thiamine Hydrochloride 100 MG Tablet PO (08:00)
[2022-12-20] MEDS: Folic Acid 1 MG Tablet PO (08:00)
--- NOTE | 2022-12-20 11:09 | PCM.DC.SUM ---
Providers Date of Admission: 12/16/22 Primary Care Physician: Iveth Primary Care Phys Reason For Visit: DESIRE FOR ALCOHOL DETOXIFICATION Diagnosis Discharge Diagnosis (1) Desire for detoxification: Status: Acute Plan: Alcohol dependence and desire for detoxification Patient be started on phenobarbital and other adjunctive medications: Gabapentin as needed; dicyclomine as needed; Vistaril as needed; Imodium as needed; trazodone as needed; Zofran as needed; scheduled thiamine; and schedule folic acid. Monitor CIWA score Still symptomatic. Continue with phenobarb taper hopefully patient will be ready for discharge a day or 2. Patient met with addiction medicine and told them that he is not interested in residential program go home. He says he will follow up with AA. (2) BRBPR (bright red blood per rectum): Status: Acute Code(s): K62.5 - Hemorrhage of anus and rectum Plan: Bright red blood per rectum Hemoglobin is stable at 14.9. ED doc reports external hemorrhoids and bloody stools. Will trend. If patient continues to bleed or if hemoglobin drops significantly consider gastroenterology consult. (3) Protein calorie malnutrition: Status: Acute Code(s): E46 - Unspecified protein-calorie malnutrition Qualifiers: Protein-calorie malnutrition severity: severe Qualified Code(s): E43 - Unspecified severe protein-calorie malnutrition Plan: Cachexia BMI of 15.7 kg per metered squared. Ensure Enlive compact ordered here. Liberalize diet upon discharge Nutritional consult (4) Lateral epicondylitis: Status: Acute Code(s): M77.10 - Lateral epicondylitis, unspecified elbow Qualifiers: Laterality: left Qualified Code(s): M77.12 - Lateral epicondylitis, left elbow Plan: Left Recommend NSAIDs and ice. (5) Ulnar neuropathy: Status: Acute Code(s): G56.20 - Lesion of ulnar nerve, unspecified upper limb Qualifiers: Laterality: left Qualified Code(s): G56.22 - Lesion of ulnar nerve, left upper limb Plan: Advised placing his left arm b/w his legs when he sleeps If that fails, then could wrap a towel around his arm to prevent him bending his arm when he sleeps. Plan Chronic conditions: Tobacco abuse. Counseled. Nicotine patch prescribed. Cocaine abuse. Avoid beta-blockers. Counseled. Marijuana Abuse. Counseled chronic alcohol pancreatitis: stable. DVT prophylaxis. Low risk. Encourage to ambulate. Medications at Discharge Home Medications ibuprofen 600 mg tablet 600 mg PO Q6H PRN PRN Pain Score 4-10 #0 tabs 12/20/22 multivitamin 1 tab PO DAILY #30 tabs 12/20/22 Medical Records Data Medical Nutrition Assessment Dietitian: Malnutrition Criteria Met Start: 12/17/22 14:25 Freq: Status: Active Protocol: Document 12/17/22 14:37 AG (Rec: 12/17/22 14:37 AG [id number]) Nutrition Malnutrition Evidence of Malnutrition Exists Yes Malnutrition (severe): Chronic Evidenced By Suboptimal Energy Intake ( Severe),Weight Loss (Severe), Physical Changes (Severe) Clinical Problem Chronic Disease or Condition Related Malnutrition Etiology severe, chronic malnutrition related to inadequate protein- calorie intake w/ chronic alcohol abuse Signs/Symptoms as evidenced by estimated PO intake meeting <50% of estimated energy needs > 3 months, unintentional wt loss of 10% x 3 months; severe muscle wasting/fat loss evident per physical exam in orbital, clavicle, and acromion areas; BMI 15.7 Status Active Problem Recommendation Dietitian Recommendations/Changes continue regular diet; will increase supplement to Ensure Plus High Protein, 8oz TID. Weight / BMI Weight Weight: 57.1 kg Body Mass Index (BMI) 15.7 ABG / Lab / Microbiology Data 12/17/22 11:58 12/16/22 18:20 Microbiology: Microbiology 12/16/22 21:28 Stool Stool Occult Blood (DEVON) - Final Occult Blood Positive D/C Instructions Discharge Diet: No restrictions Meaningful Use Info Meaningful Use Diagnoses (Choose all that apply): None applicable Discharge Plan Admission Admit Date/Time: 12/16/22 21:35 Primary Reason for Your Visit: alcohol withdrawal Attending Provider: Rolo Finnegan Primary Care Provider: Care Physician,Iveth Primary Consulting Providers: Leif Ch Instructions Additional Instructions / Restrictions: Please follow up with AA upon discharge. If you need [facility]. You are malnourished. Have a more balanced diet and eat more protien. Ice your left elbow as needed during the day. Avoid repetitive activity using your left arm until pain is improved. Try putting your left arm between your legs when you go to sleep to prevent pressure being placed on you ulnar nerve. Discharge Orders/Prescriptions Prescriptions: New multivitamin Tablet 1 tab PO DAILY Qty: 30 0RF ibuprofen 600 mg Tablet 600 mg PO Q6H PRN PRN (Reason: Pain Score 4-10) Qty: 0 0RF Referrals / Follow Up: Care Physician,No Primary [Primary Care Provider] - Disposition Disposition (needs filled in before D/C Order can be placed): Home, Self Care Charges/Coding Visit Charges Inpatient E&M: 03102 Disch Hosp
[2022-12-20 13:40] VITALS: BP 144/80; PULSE 90; RESP 18; TEMP 36.6; O2SAT 96; O2SAT 99
== END 2022-12-20 14:10 | disposition home or self-care (01) | DRG 774 ==
LOC: ED 19:14 → MS3 21:46
PROVIDERS: Admitting Provider Hospitalist; Emergency Provider Emergency Medicine
DX: F10.239 Alcohol dependence with withdrawal, unspecified (principal); F14.10 Cocaine abuse, uncomplicated; E43 Unspecified severe protein-calorie malnutrition; K86.1 Other chronic pancreatitis; I10 Essential (primary) hypertension; F12.10 Cannabis abuse, uncomplicated; F17.210 Nicotine dependence, cigarettes, uncomplicated; G56.22 Lesion of ulnar nerve, left upper limb; M77.12 Lateral epicondylitis, left elbow; K62.5 Hemorrhage of anus and rectum; I25.2 Old myocardial infarction; K64.4 Residual hemorrhoidal skin tags; Z68.1 Body mass index [BMI] 19.9 or less, adult; Y90.8 Blood alcohol level of 240 mg/100 ml or more
CPT/HCPCS: 36415; 80053; 80307; 82077; 82274; 83690; 85014; 85018; 85025; 85610; 85730; 97802; 99284; A4216